=== PATIENT | male | born 1995 | race Caucasian/White ===

== ENCOUNTER 2022-03-29 18:35 | Inpatient (IN) ==
[2022-03-29 21:33] LABS: ABS Basophils 0.1 10^3/ul (0-0.2); ABS Lymphocytes 1.3 10^3/ul (1.0-4.8); ABS Monocytes 0.6 10^3/ul (0-0.8); ABS Neutrophils 9.1 10^3/ul (1.5-7.7); Eosinophil % 0.1 %; Hematocrit 46 % (42-52); Hemoglobin 15.5 g/dL (14.0-18.0); Lymphocyte % 12.2 %; Mean Corpuscular HGB Conc 34 g/dL (31-36); Mean Corpuscular Hemoglobin 30 pg (27-31); Mean Corpuscular Volume 90 fL (80-94); Mean Platelet Volume 8.2 fL (7.4-10.4); Platelet Count 226 10^3/uL (150-450); Red Blood Count 5.15 10^6 /uL (4.18-5.48); Red Cell Distribution Width 12 % (10-15); White Blood Count 11.1 10^3/uL (3.5-10.8)
[2022-03-29 22:16] LABS: ALT 14 U/L (7-52); AST 20 U/L (13-39); Acetaminophen < 15 mcg/mL; Albumin 5.1 g/dL (3.2-5.2); Albumin/Globulin Ratio 2.3 (1-3); Alcohol, S < 13 mg/dL (<13); Alkaline Phosphatase 80 U/L (35-149); Anion Gap 10 mmol/L (2-11); Blood Urea Nitrogen 15 mg/dL (6-24); CO2 Carbon Dioxide 25 mmol/L (22-32); Calcium 9.9 mg/dL (8.6-10.3); Chloride 105 mmol/L (101-111); Globulin 2.2 g/dL (2-4); Glucose 104 mg/dL (70-100); Potassium 4.1 mmol/L (3.5-5.0); Salicylate < 2.50 mg/dL (<30); Sodium 140 mmol/L (135-145); Total Protein 7.3 g/dL (6.4-8.9); eGFR CKD-EPI 110.4 (>60)
[2022-03-29 22:30] LABS: TSH Ultra Thyroid Stim Horm 0.66 mcIU/mL (0.34-5.60)
[2022-03-29] MEDS ORDERED: Droperidol 5 MG/2 ML 2 ML VIAL IM ONE ×2 (23:19→23:55)
[2022-03-29] MEDS ORDERED: Droperidol 5 MG/2 ML 2 ML VIAL ONE (23:55)
[2022-03-30] MEDS ORDERED: LORazepam 2 mg VIAL 1 ml IM ONE (08:03)
[2022-03-30] MEDS ORDERED: Lorazepam PYXIS KEY PRN (08:03)
[2022-03-30 08:07] LABS: Urine Appearance Clear; Urine Bilirubin Negative (Negative); Urine Blood Negative (Negative); Urine Color Amber; Urine Glucose Negative (Negative); Urine Ketones 2+ (Negative); Urine Nitrite Negative (Negative); Urine Protein Negative (Negative); Urine Specific Gravity 1.033 (1.002-1.030); Urine Urobilinogen Negative (Negative)
[2022-03-30 08:22] LABS: Urine Benzodiazepine Screen None Detected (None Detect); Urine Cannabinoids Screen Presumptive Positive (None Detect); Urine Opiates Screen None Detected (None Detect)
[2022-03-30] MEDS ORDERED: Al Hydrox/Mg Hydrox/Simet LIQ 30 ML UDC PO PRN (17:27)
[2022-04-03] MEDS: Multivitamins/Minerals TAB PO SCH (09:10)
[2022-04-04] MEDS: Multivitamins/Minerals TAB PO SCH (07:43)
[2022-04-05] MEDS: Multivitamins/Minerals TAB PO SCH (09:38)
[2022-04-06 08:21] LABS: HDL Cholesterol 39.8 mg/dL
[2022-04-06] MEDS: Multivitamins/Minerals TAB PO SCH (09:06)
[2022-04-07] MEDS: Multivitamins/Minerals TAB PO SCH (07:21)
[2022-04-07] MEDS: Paliperidone SUSTENNA 234 MG/1.5 ML IM ONE (15:41)
[2022-04-08] MEDS: Multivitamins/Minerals TAB PO SCH (07:58)
[2022-04-08] MEDS: Paliperidone SUSTENNA 234 MG/1.5 ML IM ONE (10:29)
[2022-04-09] MEDS: Multivitamins/Minerals TAB PO SCH (07:12)
[2022-04-10] MEDS: Multivitamins/Minerals TAB PO SCH (07:29)
[2022-04-11 08:16] VITALS: BP 104/70
[2022-04-11] MEDS: Multivitamins/Minerals TAB PO SCH (08:27)
[2022-04-11] MEDS ORDERED: Paliperidone SUSTENNA 156 MG/1 ML IM ONE (10:00)
== END 2022-04-11 11:30 | disposition home or self-care (01) | DRG 750 ==
LOC: ED 18:35 → BSU 03-30 17:27
PROVIDERS: ADMIT Student in an Organized Health Care Education/Training Program; ATTEND Student in an Organized Health Care Education/Training Program

== ENCOUNTER 2022-04-25 16:31 | Inpatient (IN) ==
[2022-04-25 18:26] LABS: ABS Basophils 0.1 10^3/ul (0-0.2); ABS Lymphocytes 1.9 10^3/ul (1.0-4.8); ABS Monocytes 0.6 10^3/ul (0-0.8); ABS Neutrophils 6.6 10^3/ul (1.5-7.7); Eosinophil % 0.2 %; Hematocrit 45 % (42-52); Hemoglobin 15.3 g/dL (14.0-18.0); Lymphocyte % 20.9 %; Mean Corpuscular HGB Conc 34 g/dL (31-36); Mean Corpuscular Hemoglobin 31 pg (27-31); Mean Corpuscular Volume 91 fL (80-94); Mean Platelet Volume 8.1 fL (7.4-10.4); Platelet Count 210 10^3/uL (150-450); Red Blood Count 4.92 10^6 /uL (4.18-5.48); Red Cell Distribution Width 12 % (10-15); White Blood Count 9.3 10^3/uL (3.5-10.8)
[2022-04-25 18:35] LABS: Urine Appearance Clear; Urine Bilirubin Negative (Negative); Urine Blood Negative (Negative); Urine Color Yellow; Urine Glucose Negative (Negative); Urine Ketones Negative (Negative); Urine Nitrite Negative (Negative); Urine Protein Negative (Negative); Urine Specific Gravity 1.006 (1.002-1.030); Urine Urobilinogen Negative (Negative)
[2022-04-25 18:44] LABS: Urine Benzodiazepine Screen None Detected (None Detect); Urine Cannabinoids Screen Presumptive Positive (None Detect); Urine Opiates Screen None Detected (None Detect)
[2022-04-25 18:59] LABS: ALT 18 U/L (7-52); AST 22 U/L (13-39); Acetaminophen < 15 mcg/mL; Albumin/Globulin Ratio 2.1 (1-3); Alcohol, S < 13 mg/dL (<13); Alkaline Phosphatase 73 U/L (35-149); Anion Gap 8 mmol/L (2-11); Blood Urea Nitrogen 12 mg/dL (6-24); CO2 Carbon Dioxide 27 mmol/L (22-32); Calcium 10.1 mg/dL (8.6-10.3); Chloride 104 mmol/L (101-111); Globulin 2.4 g/dL (2-4); Glucose 97 mg/dL (70-100); Salicylate < 2.50 mg/dL (<30); Sodium 139 mmol/L (135-145); Total Protein 7.4 g/dL (6.4-8.9); eGFR CKD-EPI 113.2 (>60)
[2022-04-25 19:14] LABS: TSH Ultra Thyroid Stim Horm 1.36 mcIU/mL (0.34-5.60)
[2022-04-25] MEDS ORDERED: OLANZapine 10 mg TAB*ODT PO ONE (21:08)
[2022-04-25] MEDS ORDERED: Al Hydrox/Mg Hydrox/Simet LIQ 30 ML UDC PO PRN (21:51)
[2022-04-26 07:16] LABS: HDL Cholesterol 52.7 mg/dL
[2022-04-26] MEDS: Vitamin THERAPEUTIC TAB PO SCH (11:10)
[2022-04-27] MEDS: Vitamin THERAPEUTIC TAB PO SCH (08:23)
[2022-04-28] MEDS: Vitamin THERAPEUTIC TAB PO SCH (07:32)
[2022-04-29] MEDS: Vitamin THERAPEUTIC TAB PO SCH (08:31)
[2022-04-30] MEDS: Vitamin THERAPEUTIC TAB PO SCH (08:44)
[2022-05-01] MEDS: Vitamin THERAPEUTIC TAB PO SCH (08:11)
[2022-05-02] MEDS: Vitamin THERAPEUTIC TAB PO SCH (08:25)
[2022-05-03] MEDS: Vitamin THERAPEUTIC TAB PO SCH (08:57)
[2022-05-04] MEDS: Vitamin THERAPEUTIC TAB PO SCH (07:32)
[2022-05-05] MEDS: Vitamin THERAPEUTIC TAB PO SCH (07:44)
[2022-05-06] MEDS: Vitamin THERAPEUTIC TAB PO SCH (08:57)
[2022-05-07] MEDS: Vitamin THERAPEUTIC TAB PO SCH (08:19)
[2022-05-08] MEDS: Vitamin THERAPEUTIC TAB PO SCH (08:27)
[2022-05-08 08:58] VITALS: BP 125/73
== END 2022-05-08 11:01 | DRG 750 ==
LOC: ED 16:31 → EDHOLD 21:00 → BSU 21:35
PROVIDERS: ADMIT Psychiatry & Neurology Psychiatry; ATTEND Student in an Organized Health Care Education/Training Program

== ENCOUNTER 2022-05-10 20:57 | Inpatient (IN) ==
[2022-05-10 21:36] LABS: ABS Basophils 0.1 10^3/ul (0-0.2); ABS Eosinophils 0.1 10^3/ul (0-0.6); ABS Lymphocytes 2.3 10^3/ul (1.0-4.8); ABS Monocytes 1.2 10^3/ul (0-0.8); ABS Neutrophils 5.9 10^3/ul (1.5-7.7); Eosinophil % 1.4 %; Hematocrit 45 % (42-52); Hemoglobin 15.1 g/dL (14.0-18.0); Lymphocyte % 24.2 %; Mean Corpuscular HGB Conc 34 g/dL (31-36); Mean Corpuscular Hemoglobin 31 pg (27-31); Mean Corpuscular Volume 91 fL (80-94); Mean Platelet Volume 7.9 fL (7.4-10.4); Nucleated Red Blood Cells % 0.1; Platelet Count 181 10^3/uL (150-450); Red Blood Count 4.92 10^6 /uL (4.18-5.48); Red Cell Distribution Width 12 % (10-15); White Blood Count 9.6 10^3/uL (3.5-10.8)
[2022-05-10 22:07] LABS: ALT 43 U/L (7-52); AST 34 U/L (13-39); Acetaminophen < 15 mcg/mL; Albumin 4.7 g/dL (3.2-5.2); Alcohol, S < 13 mg/dL (<13); Alkaline Phosphatase 72 U/L (35-149); Anion Gap 12 mmol/L (2-11); Blood Urea Nitrogen 10 mg/dL (6-24); CO2 Carbon Dioxide 26 mmol/L (22-32); Calcium 9.8 mg/dL (8.6-10.3); Chloride 103 mmol/L (101-111); Globulin 2.3 g/dL (2-4); Glucose 97 mg/dL (70-100); Potassium 3.8 mmol/L (3.5-5.0); Salicylate < 2.50 mg/dL (<30); Sodium 141 mmol/L (135-145); eGFR CKD-EPI 120.8 (>60)
[2022-05-10 22:09] LABS: Urine Benzodiazepine Screen None Detected (None Detect); Urine Cannabinoids Screen Presumptive Positive (None Detect); Urine Opiates Screen None Detected (None Detect)
[2022-05-10 22:11] LABS: Urine Appearance Clear; Urine Color Straw; Urine Urobilinogen 0.2 (Negative) (Negative)
[2022-05-10 22:12] LABS: Urine Bilirubin Negative (Negative); Urine Blood Negative (Negative); Urine Glucose Negative (Negative); Urine Ketones Negative (Negative); Urine Nitrite Negative (Negative); Urine Protein Negative (Negative)
[2022-05-10 22:22] LABS: TSH Ultra Thyroid Stim Horm 2.64 mcIU/mL (0.34-5.60)
[2022-05-11 01:21] LABS: Valproic Acid < 13.0 mcg/mL (50-100)
[2022-05-11] MEDS ORDERED: Al Hydrox/Mg Hydrox/Simet LIQ 30 ML UDC PO PRN (01:44)
[2022-05-11] MEDS: Nicotine GUM 2MG FRUIT FLAVOR PO PRN ×3 (03:50→17:33)
[2022-05-11] MEDS: Vitamin THERAPEUTIC TAB PO SCH (07:38)
[2022-05-11] MEDS: Nicotine PATCH 14 MG/24 HR PATCH TRANSDERM SCH (07:38)
[2022-05-12] MEDS: Vitamin THERAPEUTIC TAB PO SCH (09:05)
[2022-05-12] MEDS: Nicotine GUM 2MG FRUIT FLAVOR PO PRN (09:07)
[2022-05-12] MEDS: Nicotine PATCH 14 MG/24 HR PATCH TRANSDERM SCH (09:08)
[2022-05-13] MEDS: Nicotine PATCH 14 MG/24 HR PATCH TRANSDERM SCH (08:43)
[2022-05-13] MEDS: Vitamin THERAPEUTIC TAB PO SCH (08:43)
[2022-05-14] MEDS: Nicotine PATCH 14 MG/24 HR PATCH TRANSDERM SCH (07:27)
[2022-05-14] MEDS: Nicotine GUM 2MG FRUIT FLAVOR PO PRN ×2 (07:27→17:33)
[2022-05-14] MEDS: Vitamin THERAPEUTIC TAB PO SCH (07:27)
[2022-05-14 08:33] LABS: HDL Cholesterol 41.3 mg/dL
[2022-05-15] MEDS: Nicotine GUM 2MG FRUIT FLAVOR PO PRN ×3 (07:31→17:42)
[2022-05-15] MEDS: Nicotine PATCH 14 MG/24 HR PATCH TRANSDERM SCH (08:27)
[2022-05-15] MEDS: Vitamin THERAPEUTIC TAB PO SCH (08:27)
[2022-05-16] MEDS: Nicotine PATCH 14 MG/24 HR PATCH TRANSDERM SCH (07:52)
[2022-05-16] MEDS: Nicotine GUM 2MG FRUIT FLAVOR PO PRN ×2 (07:53→15:10)
[2022-05-16] MEDS: Vitamin THERAPEUTIC TAB PO SCH (07:53)
[2022-05-17] MEDS: Nicotine GUM 2MG FRUIT FLAVOR PO PRN ×2 (08:42→15:40)
[2022-05-17] MEDS ORDERED: OLANZapine 5 mg TAB *ODT ONE (14:08)
[2022-05-18] MEDS: Nicotine GUM 2MG FRUIT FLAVOR PO PRN ×2 (13:45→17:47)
[2022-05-19] MEDS: Nicotine GUM 2MG FRUIT FLAVOR PO PRN (10:55)
[2022-05-20] MEDS: Nicotine GUM 2MG FRUIT FLAVOR PO PRN (15:29)
[2022-05-21] MEDS ORDERED: Multivitamins/Minerals TAB ONE (12:15)
[2022-05-22] MEDS: Vitamin THERAPEUTIC TAB PO SCH (07:22)
[2022-05-22 07:57] VITALS: BP 125/76
[2022-05-22] MEDS: Nicotine GUM 2MG FRUIT FLAVOR PO PRN (17:34)
[2022-05-23] MEDS: Vitamin THERAPEUTIC TAB PO SCH (08:59)
== END 2022-05-23 10:55 | disposition home or self-care (01) | DRG 750 ==
LOC: ED 20:57 → BSU 05-11 00:05
PROVIDERS: ADMIT Psychiatry & Neurology Psychiatry; ATTEND Psychiatry & Neurology Psychiatry